=== PATIENT | female | born 1995 | race Asian ===

== ENCOUNTER 2017-03-02 22:36 | Emergency (ER) | payer OTHER ==
[~2017-03-02] VITALS: Ht 154.9 cm; Wt 53.5 kg
[2017-03-02 23:03] VITALS: BP 139/89
[2017-03-02] MEDS ORDERED: CIPR500T94 PO (23:36)
--- NOTE | 2017-03-02 23:36 | PHYS DOC ---
Past Medical History Past Medical History: No Pertinent History Past Surgical History: No Surgical History Alcohol Use: None Drug Use: None Adult General Chief Complaint Chief Complaint: FOOT INJURY PAIN [facility] HPI Patient is a 21 year old female presents emergency department stating that they were out walking in the welts when she stepped on a piece with that had a nail in it. She states that she had the nail go through her tennis shoe into her right foot. She is able to ambulate although she has increased pain and discomfort. She denies any fever, chills or any nausea vomiting at this time. Immunizations are up-to-date. Review of Systems Review of Systems Constitutional: Denies fever or chills [] Eyes: Denies change in visual acuity, redness, or eye pain [] HENT: Denies nasal congestion or sore throat [] Respiratory: Denies cough or shortness of breath [] Cardiovascular: No additional information not addressed in HPI [] GI: Denies abdominal pain, nausea, vomiting, bloody stools or diarrhea [] : Denies dysuria or hematuria [] Musculoskeletal: Denies back pain or joint pain [] Integument: Denies rash or skin lesions. C/o puncture wound to right foot Neurologic: Denies headache, focal weakness or sensory changes [] Allergies Allergies Allergies Coded Allergies Type Severity Reaction Last Updated Verified No Known Drug Allergies 03/02/17 No Physical Exam Physical Exam Constitutional: Well developed, well nourished, no acute distress, non-toxic appearance. [] HENT: Normocephalic, atraumatic, bilateral external ears normal, oropharynx moist, no oral exudates, nose normal. [] Eyes: PERRLA, EOMI, conjunctiva normal, no discharge. [] Neck: Normal range of motion, no tenderness, supple, no stridor. [] Cardiovascular:Heart rate regular rhythm, no murmur [] Lungs & Thorax: Bilateral breath sounds clear to auscultation [] Skin: Warm, dry, no erythema, no rash. Patient with a small puncture wound noted to the bottom of the right foot no drainage or discharge noted from the area. Back: No tenderness Extremities: No tenderness, no cyanosis, no clubbing, ROM intact, no edema. [] Neurologic: Alert and oriented X 3, normal motor function, normal sensory function, no focal deficits noted. [] Psychologic: Affect normal, judgement normal, mood normal. [] Current Patient Data Vital Signs Vital Signs Date Time Temp Pulse Resp B/P Pulse Ox O2 Delivery O2 Flow Rate FiO2 03/02/17 23:03 98.6 102 16 99 Room Air 98.6 EKG EKG [] Radiology/Procedures Radiology/Procedures [] Course & Med Decision Making Course & Med Decision Making Pertinent Labs and Imaging studies reviewed. (See chart for details) Right foot was soaked in Betadine and water. X-rays were negative for any foreign body noted in the foot. Patient will be placed on Cipro 1 tablet twice day for the next 10 days. Recommended following up with a primary care physician next 5-7 days. So recommended Tylenol and ibuprofen for pain and discomfort. Eyes and symptoms to return back to emergency department as been provided. Patient agrees with discharge instructions treatment regimens and follow-up recommendations. [] Dragon Disclaimer Dragon Disclaimer This electronic medical record was generated, in whole or in part, using a voice recognition dictation system. Departure Departure Impression: Primary Impression: Puncture wound of right foot Disposition: HOME, SELF-CARE Condition: STABLE Referrals: GARO CARMEN (PCP) Patient Instructions: Puncture Wound, [id number] Additional Instructions: Activity as tolerated. Keep the area clean and dry. Clean the site with soap and water and apply antibiotic to the area today. Watch for signs and symptoms of infection: Redness, warmth, tenderness or any yellow/greenish drainage of a come from the site. Tylenol or ibuprofen for pain and discomfort. Medication as prescribed. Ice packs on 20 minutes off 20 minutes several times a day. Elevation as much as possible. Follow-up primary care physician in the next 5-7 days. Return back to emergency prior signs symptoms of become worse. Scripts Ciprofloxacin Hcl (Cipro)500 Mg Tablet1 Tab PO BID #20 TAB Prov:DESIREE APODACA APRN 03/02/17 DESIREE APODACA APRN Mar 02, 2017 23:36
--- NOTE | 2017-03-03 08:06 | RAD ---
FOOT RIGHT 3V Clinical Indication: stepped on nail, location not specified Comparison: None. Technique: Frontal, oblique and lateral views of the right foot are obtained. Findings: No acute fracture or dislocation is seen. Joint spaces are maintained. Surrounding soft tissues demonstrate no acute finding. No radiopaque foreign body is seen. IMPRESSION: No acute osseous injury seen.
== END 2017-03-02 23:45 | disposition home or self-care (01) ==
LOC: ER 22:37
DX: S91.331A Puncture wound without foreign body, right foot, initial encounter (principal); W45.0XXA Nail entering through skin, initial encounter; Y93.01 Activity, walking, marching and hiking; Y92.89 Other specified places as the place of occurrence of the external cause; Y99.8 Other external cause status
CPT/HCPCS: 73630; 99284